=== PATIENT | male | born 1975 | race African-American/Black ===

== ENCOUNTER → 2017-12-05 | Outpatient (CLI) | payer OTHER ==
[~2017-12-05] MED LIST: LEVAQUIN 750 M750 MG PO
== END ==
LOC: M.RAD 09:25
DX: M25.521 Pain in right elbow (principal)

== ENCOUNTER → 2018-05-26 | Outpatient (CLI) | payer OTHER | LOC: M.CT 09:00 | DX: D73.9 Disease of spleen, unspecified (principal); R59.0 Localized enlarged lymph nodes; M89.9 Disorder of bone, unspecified; K76.9 Liver disease, unspecified ==

== ENCOUNTER → 2018-05-28 | Outpatient (CLI) | payer OTHER ==
[2018-05-28] VITALS (10 sets, daily range): BP systolic 112–136; BP diastolic 71–83
[~2018-05-28] VITALS: Ht 193 cm; Wt 89.8 kg
[2018-05-28 08:47] LABS: ABSOLUTE BASOPHILS 0.1 thou/uL (0.0-0.2); ABSOLUTE EOSINOPHILS 0.1 thou/uL (0.0-0.7); ABSOLUTE LYMPHOCYTES 1.5 thou/uL (0.8-5.3); ABSOLUTE MONOCYTES 0.9 thou/uL (0.0-1.2); ABSOLUTE NEUTROPHILS 5.6 thou/uL (1.6-8.1); BASOPHILS 0.8 %; EOSINOPHILS 1.5 %; HEMATOCRIT 43.2 % (42.0-52.0); HEMOGLOBIN 14.2 gm/dL (14.0-18.0); LYMPHOCYTES 18.5 %; MCH 27.1 pg (26.0-34.0); MCHC 32.8 g/dL (28.0-37.0); MCV 82.7 fL (80.0-100.0); MONOCYTES 10.9 %; MPV 8.1 fl. (7.2-11.1); NUCLEATED RBCS 0 /100WBC; PLATELET COUNT* 277 thou/uL (150-400); POLYS 68.3 %; RBC 5.23 mil/uL (4.50-6.00); RDW-CV 13.3 % (10.5-14.5); WBC 8.2 thou/uL (4.0-11.0)
[2018-05-28 08:57] LABS: APTT 29.6 Seconds (25.0-31.3); CALCIUM 9.1 mg/dL (8.5-10.1); CREATININE 1.5 mg/dL (0.6-1.3); INR 1.1; POTASSIUM 3.7 mmol/L (3.5-5.1); PROTIME 11.6 Seconds (9.20-11.50)
[2018-05-28 09:02] LABS: ALBUMIN 3.7 g/dL (3.4-5.0); TOTAL BILIRUBIN 0.5 mg/dL (<0.1-1.0); TOTAL PROTEIN 8.9 g/dL (6.4-8.2)
--- NOTE | 2018-06-10 10:07 | PATH ---
[address] [address] PATHOLOGY RPT PROCEDURE Name: YESSICA IBRAHIM Room: [facility] EMERITA Keller#: [id number] Admission: 05/28/18 Date of : 75 Discharge: Report #: [id number] Path Case #: [id number] [facility] Accession Number: [id number] . 01 Material submitted: . SPLEEN . 01 Clinical history: . Multiple masses . 02 Diagnosis: Splenic mass, image-guided core biopsy: - Caseating and non-caseating granulomatous inflammation. See comment. (KEELEY:jayy; 06/02/2018) QMS/06/02/2018 . 02 Comment: The core shows well-formed granulomata throughout its length with some residual probable splenic parenchyma at one end and the granulomata are predominantly non-caseating, although several show central caseous necrosis. Properly controlled immunohistochemical stains performed on A1 show the following results: . CD68: Highlights granulomatous component. Keratin AE1/AE3: Negative. . Properly controlled GMS stain is negative for fungus and an AFB (Enid's) stain highlights a single small cluster of acid-fast organisms compatible with mycobacteria, however, cultures are more reliable at both identification and speciation. Examination under cross polarized microscopy reveals no birefringent foreign material. The differential includes many infectious causes including histoplasmosis and brucellosis and sarcoidosis should also be considered in the differential. . Reviewed with Dr. Te Winchester. Dr. Stephanie Cowan notified at approximately 1720 on 06/02/2018. . (KEELEY:jayy; 06/02/2018 . 02 Electronically signed: . Roberto Donald MD, Pathologist NPI- [id number] . 01 Gross description: . Received in formalin labeled "Yessica Ibrahim, spleen BX," is a single needle core of ponce soft tissue measuring 1.3 cm in length and less than 0.1 cm in diameter. The specimen is submitted entirely in cassette A1. (TSD; 05/28/2018) [place] [address] PATHOLOGY RPT PROCEDURE Name: YESSICA IBRAHIM [id number] Admission: 05/28/18 Date of : 75 Discharge: Report #: [id number] Path Case #: [id number] TOB/TOB . 02 Pathologist provided ICD-10: D73.89 . 02 CPT . 334286, [id number], 991919, [id number], [id number] Specimen Comment: A courtesy copy of this report has been sent to Specimen Comment: [phone], . Specimen Comment: Report sent to and Performed at: [address], [place], [place] [id number] MD Chaim Hull MD Phone: [phone] Performed at: [address] [facility] [address] [place], [place] [id number] MD Roberto Donald MD Phone: [phone]
== END | disposition home or self-care (01) ==
LOC: M.INT 08:05
PROVIDERS: Radiology Vascular & Interventional Radiology
DX: D73.89 Other diseases of spleen (principal); Z79.01 Long term (current) use of anticoagulants